=== PATIENT | male | born 1955 | race Caucasian/White ===

== ENCOUNTER 2019-10-06 13:16 | Emergency (ER) | payer SELFPAY ==
--- NOTE | 2019-10-06 14:06 | Event Note ---
ED Screening Note Date of service: 10/06/19 Time: 14:04 ED Screening Note: 64 y o male presents s/p hemmorhoidectomy x6 weeks and rectal pain and inability to have a BM x 10 days This initial assessment/diagnostic orders/clinical plan/treatment(s) is/are subject to change based on patients health status, clinical progression and re- assessment by fellow clinical providers in the ED. Further treatment and workup at subsequent clinical providers discretion. Patient/guardian urged not to elope from the ED as their condition may be serious if not clinically assessed and managed. Initial orders include: labs main side eval
--- NOTE | 2019-10-06 15:45 | Cat Scan Report ---
CT ABDOMEN AND PELVIS WITHOUT CONTRAST HISTORY: abd pain COMPARISON: None. TECHNIQUE: Axial CT images were obtained through the abdomen and pelvis without IV contrast. Sagittal and coronal reformatted images. All CT scans at this location are performed using CT dose reduction for ALARA by means of automated exposure control. FINDINGS: CT ABDOMEN: Lung Bases: There is focal scarring and pleural calcifications at the left lung base suggesting previ ous left pleural insult. Liver: No significant abnormality. Biliary: No significant abnormality. Spleen: No significant abnormality. Unenlarged. Pancreas: No significant abnormality. Adrenals: No significant abnormality. Kidneys: There are a few scattered calyceal stones in the inferior kidneys bilaterally. The largest s tone measures 5 mm in the inferior right kidney. No ureteral stones or hydronephrosis. Lymphatics: No lymphadenopathy. Vasculature: No significant abnormality. Bowel/Peritoneum: There is moderate stool in the distal colon and rectum. No evidence for bowel obstr uction or focal inflammation. No free fluid or free air. Normal appendix. CT PELVIS: : No significant abnormality. Osseous Structures: Moderate lumbar spondylosis. Additional Findings: None IMPRESSION: No acute inflammatory process is identified. Moderate fecal retention in the distal colon and rectum. Bilateral nonobstructing renal stones. Signer Name: Rafal Fraire Jr, MD Signed: 10/06/2019 3:41 PM Workstation Name: [id number]
[2019-10-06 19:21] LABS: Basophils % (Auto) 0.8 % (0.0-1.8); Eosinophils # (Auto) 0.1 K/mm3 (0.0-0.4); Eosinophils % (Auto) 1.5 % (0.0-4.3); Hematocrit 36.4 % (35.5-45.6); Hemoglobin 12.4 gm/dl (11.8-15.2); Lymphocytes # (Auto) 1.2 K/mm3 (1.2-5.4); Lymphocytes % (Auto) 20.5 % (13.4-35.0); Mean Corpuscular HGB Conc 34 % (32-34); Mean Corpuscular Volume 89 fl (84-94); Monocytes # (Auto) 0.3 K/mm3 (0.0-0.8); Monocytes % (Auto) 5.9 % (0.0-7.3); Platelet Count 322 K/mm3 (140-440); Red Blood Count 4.07 M/mm3 (3.65-5.03); Red Cell Distribution Width 14.2 % (13.2-15.2)
[2019-10-06] MEDS ORDERED: LACTULOSE 20 GM/30 ML ORAL LIQD PO ONE (19:30)
[2019-10-06 19:43] LABS: Alanine Aminotransferase 6 units/L (7-56); Albumin 3.4 g/dL (3.9-5); BUN/Creatinine Ratio 13; Blood Urea Nitrogen 8 mg/dL (9-20); Hemolysis Index 11
--- NOTE | 2019-10-06 19:51 | Emergency Department Report ---
HPI - General Chief Complaint: Abdominal Pain Time Seen by Provider: 10/06/19 19:21 - HPI HPI: Room 36 The patient is a 64-year-old male presenting with chief complaint of constipation. Patient states she had hemorrhoid surgery approximately 6 weeks ago. The patient states the past 3-4 weeks he suffered from constipation only passing small amounts of stool at a time despite taking stool softeners. Patient states he sometimes has nausea while straining on the toilet but denies vomiting. Patient denies history of fever Location: [See above] Duration: [See above] Quality: [See above] Severity: [See above] Timing: [See above] Context: [See above] Modifying factors: [See above] Associated signs and symptoms: [see above] ED Past Medical Hx - Past Medical History Previous Medical History?: No - Surgical History Past Surgical History?: Yes Additional Surgical History: Hemmorhoid surgery - Family History Family history: no significant - Social History Smoking Status: Current Every Day Smoker (1/3 pack per day) Substance Use Type: Alcohol (occasional) - Medications Home Medications: Home Medications Medication Instructions Recorded Confirmed Last Taken Type Polyethylene Glycol/Elect 4,000 ml PO QDAY PRN #1 bottle 10/07/19 Unknown Rx [Golytely] ED Review of Systems ROS: Stated complaint: ABD PAIN Other details as noted in HPI Constitutional: denies: fever Eyes: denies: eye pain ENT: denies: throat pain Respiratory: no symptoms reported Cardiovascular: denies: chest pain Endocrine: no symptoms reported Gastrointestinal: nausea, constipation. denies: vomiting Musculoskeletal: denies: back pain Neurological: denies: headache Physical Exam - Physical Exam Vital Signs: Vital Signs 10/06/19 14:03 Temperature 98.7 F Pulse Rate 89 Respiratory 20 Rate Blood Pressure 132/85 O2 Sat by Pulse 96 Oximetry Physical Exam: GENERAL: The patient is well-developed well-nourished male lying on stretcher not appearing to be in acute distress. [] HEENT: Normocephalic. Atraumatic. Extraocular motions are intact. Patient has moist mucous membranes. NECK: Supple. Trachea midline CHEST/LUNGS: Clear to auscultation. There is no respiratory distress noted. HEART/CARDIOVASCULAR: Regular. There is no tachycardia. There is no gallop rub or murmur. ABDOMEN: Abdomen is soft, nontender. Patient has normal bowel sounds. There is no abdominal distention. SKIN: There is no rash. There is no edema. There is no diaphoresis. NEURO: The patient is awake, alert, and oriented. The patient is cooperative. The patient has normal speech MUSCULOSKELETAL: There is no evidence of acute injury. ED Course Vital Signs 10/06/19 14:03 Temperature 98.7 F Pulse Rate 89 Respiratory 20 Rate Blood Pressure 132/85 O2 Sat by Pulse 96 Oximetry ED Medical Decision Making - Lab Data Result diagrams: 10/06/19 19:03 10/06/19 19:03 Laboratory Tests 10/06/19 10/06/19 19:03 19:03 WBC 5.6 RBC 4.07 Hgb 12.4 Hct 36.4 MCV 89 MCH 30 MCHC 34 RDW 14.2 Plt Count 322 Lymph % (Auto) 20.5 [place] % (Auto) 5.9 Eos % (Auto) 1.5 Baso % (Auto) 0.8 Lymph # 1.2 [place] # 0.3 Eos # 0.1 Baso # 0.0 Seg Neutrophils % 71.3 H Seg Neutrophils # 4.0 Sodium 138 Potassium 3.0 L Chloride 98.7 Carbon Dioxide 22 Anion Gap 20 BUN 8 L Creatinine 0.6 L Estimated GFR > 60 BUN/Creatinine Ratio 13 Glucose 84 Calcium 9.0 Total Bilirubin 0.30 AST 12 ALT 6 L Alkaline Phosphatase 90 Total Protein 7.7 Albumin 3.4 L Albumin/Globulin Ratio 0.8 - Radiology Data Radiology results: report reviewed (CT abdomen pelvis), image reviewed (CT abdomen and pelvis) [facility] [address] [place] [address] Cat Scan Report Signed Patient: ADITI SOLER MR#: [id number] : 1955 Acct:[id number] Age/Sex: 64 / M ADM Date: 10/06/19 Loc: ED Attending Dr: Ordering Physician: SHAYNA SALMERON Date of Service: 10/06/19 Procedure(s): CT abdomen pelvis wo con Accession Number(s): [id number] cc: SHAYNA SALMERON CT ABDOMEN AND PELVIS WITHOUT CONTRAST HISTORY: abd pain COMPARISON: None. TECHNIQUE: Axial CT images were obtained through the abdomen and pelvis without IV contrast. Sagittal and coronal reformatted images. All CT scans at this location are performed using CT dose reduction for ALARA by means of automated exposure control. FINDINGS: CT ABDOMEN: Lung Bases: There is focal scarring and pleural calcifications at the left lung base suggesting previous left pleural insult. Liver: No significant abnormality. Biliary: No significant abnormality. Spleen: No significant abnormality. Unenlarged. Pancreas: No significant abnormality. Adrenals: No significant abnormality. Kidneys: There are a few scattered calyceal stones in the inferior kidneys bilaterally. The largest stone measures 5 mm in the inferior right kidney. No ureteral stones or hydronephrosis. Lymphatics: No lymphadenopathy. Vasculature: No significant abnormality. Bowel/Peritoneum: There is moderate stool in the distal colon and rectum. No evidence for bowel obstruction or focal inflammation. No free fluid or free air. Normal appendix. CT PELVIS: : No significant abnormality. Osseous Structures: Moderate lumbar spondylosis. Additional Findings: None IMPRESSION: No acute inflammatory process is identified. Moderate fecal retention in the distal colon and rectum. Bilateral nonobstructing renal stones. Signer Name: Rafal Fraire Jr, MD Signed: 10/06/2019 3:41 PM Workstation Name: [id number] Transcribed By: TTR Dictated By: RAFAL FRAIRE JR, MD Electronically Authenticated By: RAFAL FRAIRE JR, MD Signed Date/Time: 10/06/19 1541 DD/ 1534 TD/TT: - Differential Diagnosis constipation Critical care attestation.: If time is entered above; I have spent that time in minutes in the direct care of this critically ill patient, excluding procedure time. ED Disposition Clinical Impression: Constipation Disposition: -01 TO HOME OR SELFCARE Is pt being admited?: No Does the pt Need Aspirin: No Condition: Stable Instructions: Constipation (ED) Additional Instructions: Return to the emergency department should you develop worsening symptoms, inability to tolerate food or liquids, high fever or any other concerns Prescriptions: Polyethylene Glycol/Elect [Golytely] 4,000 ml PO QDAY PRN #1 bottle PRN Reason: Constipation Referrals: CECILIA PALOMARES MD [Primary Care Provider] - 3-5 Days Time of Disposition: 01:00
[2019-10-06] MEDS ORDERED: POTASSIUM CHLORIDE ER 20 MEQ TAB PO ONE (19:52)
[2019-10-07 01:32] VITALS: BP 141/89
== END 2019-10-07 01:32 | disposition home or self-care (01) ==
LOC: ED 13:16
DX: K59.00 Constipation, unspecified (principal); R11.0 Nausea; F17.210 Nicotine dependence, cigarettes, uncomplicated; Z98.890 Other specified postprocedural states
CPT/HCPCS: 36415; 74176; 80053; 85025